=== PATIENT | male | born 2005 | race Caucasian/White ===

== ENCOUNTER → 2023-11-21 13:15 | Outpatient (REF) | payer BC, SELFPAY | LOC: MRI 3T 13:15 | PROVIDERS: ATTENDING PHYSICIAN Orthopaedic Surgery Sports Medicine | DX: S46.911A Strain of unspecified muscle, fascia and tendon at shoulder and upper arm level, right arm, initial encounter (principal) | CPT/HCPCS: 23350; 73040; 73222 ==